=== PATIENT | female | born 2000 | race Caucasian/White ===

== ENCOUNTER 2024-09-24 22:14 | Emergency (ER) | payer BC, OTHER ==
[~2024-09-24] VITALS: Ht 157.5 cm; Wt 46.7 kg
[2024-09-24 23:06] VITALS: BP 108/71; PULSE 103; RESP 16; TEMP 97.7; O2SAT 97
[2024-09-25 00:13] LABS: BASOPHILS % (AUTO) 0.6 % (0.0-2.0); EOSINOPHILS % (AUTO) 0.4 % (0.0-4.0); HEMATOCRIT 42.5 % (36-48); LYMPHOCYTES # (AUTO) 2.6 K/uL (2.5-16.5); LYMPHOCYTES % (AUTO) 36.2 % (20.5-51.1); MEAN CORPUSCULAR HEMOGLOBIN 27 pg (27-31); MEAN CORPUSCULAR HGB CONC 33 g/dL (33-37); MEAN CORPUSCULAR VOLUME 81.3 fL (80-94); MONOCYTES # (AUTO) 0.8 K/uL (0.8-1.0); MONOCYTES % (AUTO) 11.6 % (1.7-9.3); NEUTROPHILS # (AUTO) 3.7 K/uL (1.8-7.7); NEUTROPHILS % (AUTO) 51.2 % (42.2-75.2); PLATELET COUNT (AUTO) 396 K/uL (140-450); RED BLOOD CELL COUNT(AUTO) 5.23 MIL/uL (4.20-5.40); RED CELL DISTRIBUTION WIDTH 15.3 % (11.6-13.7); WHITE BLOOD COUNT (AUTO) 7.2 K/uL (4.8-10.8)
[2024-09-25 00:19] LABS: APPEARANCE,URINE CLEAR (CLEAR); BILIRUBIN,URINE NEGATIVE (NEGATIVE); BLOOD, URINE NEGATIVE (NEGATIVE); COLOR,URINE YELLOW (YELLOW); LEUKOCYTE ESTERASE ,URINE NEGATIVE (NEGATIVE); NITRITE, URINE NEGATIVE (NEGATIVE); PROTEIN,URINE NEGATIVE (NEGATIVE); UGLUCOSE 2+ (NEGATIVE); UROBILINOGEN,URINE 0.2 EU/dL (0.2 - 1)
[2024-09-25] MEDS: NACL 0.9% 1,000 ML IV ONE (00:21)
[2024-09-25] MEDS: MORPHINE SULFATE 4 MG/ML SYR IVP ONE ×2 (00:22→01:54)
[2024-09-25 00:28] LABS: ANION GAP 13.3 (8-16); CALCIUM 9.6 mg/dL (8.5-10.1); CARBON DIOXIDE 30.3 mmol/L (21-32); CREATININE 0.6 mg/dL (0.6-1.3); POTASSIUM 4.6 mmol/L (3.5-5.1)
[2024-09-25 00:34] LABS: TOTAL BILIRUBIN 0.7 mg/dL (0.0-1.0)
[2024-09-25 00:35] LABS: ALBUMIN 3.6 g/dL (3.4-5.0); BILIRUBIN,DIRECT 0.1 mg/dL (0.0-0.3); TOTAL PROTEIN, SERUM 7.3 g/dL (6.4-8.2)
[2024-09-25] MEDS: ONDANSETRON 4 MG/2 ML VIAL IVP ONE (00:47)
[2024-09-25] MEDS ORDERED: FAMO-90 PO (01:34)
[2024-09-25] MEDS ORDERED: BEN10 PO (01:34)
[2024-09-25 02:08] VITALS: BP 115/76; PULSE 100; RESP 18; TEMP 97.7; O2SAT 99
[2024-09-26] MEDS ORDERED: TRAM50TA3 PO (21:59)
== END 2024-09-25 02:08 | disposition home or self-care (01) ==
LOC: MED 22:14
DX: R10.13 Epigastric pain (principal); R53.1 Weakness; E10.9 Type 1 diabetes mellitus without complications; G89.29 Other chronic pain; M54.9 Dorsalgia, unspecified; Z79.899 Other long term (current) drug therapy
CPT/HCPCS: 36415; 80048; 80076; 81003; 81025; 83690; 85025; 96361; 96374; 96375; 96376; 99284; J2270; J2405

== ENCOUNTER 2024-09-26 18:00 | Emergency (ER) | payer BC, OTHER ==
[~2024-09-26] VITALS: Ht 157.5 cm; Wt 46.7 kg
[~2024-09-26 18:00] MED LIST: BEN10 PO; FAMO-90 PO
[2024-09-26 18:02] VITALS: BP 121/91; PULSE 122; RESP 22; TEMP 98.6; O2SAT 94
[2024-09-26] MEDS: MORPHINE SULFATE 4 MG/ML SYR IM ONE (18:37)
[2024-09-26] MEDS: KETOROLAC 30 MG/ML VIAL IVP ONE (18:38)
[2024-09-26] MEDS: ONDANSETRON 4 MG/2 ML VIAL IVP ONE (18:39)
[2024-09-26] MEDS ORDERED: HYDROmorphone PFS 2 MG/ML SYR IVP ONE (19:45)
[2024-09-26] MEDS: MORPHINE SULFATE 4 MG/ML SYR IVP ONE ×2 (20:39→22:36)
[2024-09-26] MEDS ORDERED: TRAM50TA3 PO (21:59)
[2024-09-26 22:41] VITALS: BP 124/86; PULSE 104; RESP 11; TEMP 98.6; O2SAT 100
== END 2024-09-26 22:41 | disposition home or self-care (01) ==
LOC: MED 18:00
DX: S33.5XXA Sprain of ligaments of lumbar spine, initial encounter (principal); M47.816 Spondylosis without myelopathy or radiculopathy, lumbar region; E10.9 Type 1 diabetes mellitus without complications; Z79.899 Other long term (current) drug therapy; X58.XXXA Exposure to other specified factors, initial encounter; Y93.89 Activity, other specified; Y92.89 Other specified places as the place of occurrence of the external cause; Y99.8 Other external cause status
CPT/HCPCS: 82948; 96374; 96375; 96376; 99285; J1885; J2270; J2405

== ENCOUNTER 2024-09-27 18:02 | Emergency (ER) | payer BC, OTHER ==
[~2024-09-27] VITALS: Ht 157.5 cm; Wt 49.9 kg
[~2024-09-27 18:02] MED LIST changes: +TRAM50TA3 PO
[2024-09-27 18:15] VITALS: BP 155/97; PULSE 145; RESP 24; TEMP 97.7; O2SAT 96
[2024-09-27] MEDS: KETOROLAC 60 MG/2 ML VIAL IM ONE (18:48)
[2024-09-27 19:07] VITALS: BP 155/98; PULSE 112; RESP 16; TEMP 97.7
== END 2024-09-27 19:09 | disposition home or self-care (01) ==
LOC: MED 18:02
DX: G89.29 Other chronic pain (principal); M54.50 Low back pain, unspecified; M54.6 Pain in thoracic spine; E10.9 Type 1 diabetes mellitus without complications; Z79.899 Other long term (current) drug therapy
CPT/HCPCS: 96372; 99283; J1885